=== PATIENT | female | born 1945 | race Caucasian/White ===

== ENCOUNTER → 2018-04-26 | Day surgery (SDC) | payer BC ==
[~2018-04-26] MED LIST: ADULT LOW DOSE81 MG PO; ATORVASTATIN CA40 MG PO; CELEBREX 200 M200 MG PO; COUMADIN 2 MG TA2 M1 PO; COUMADIN 5 MG TA5 M1 PO; HYDROCHLOROTHIA25 M1 PO; KLOR-CON 1010 MEQ PO; LASIX 20 MG TAB20 MG PO; NIASPAN750 MG PO; NORCO 5-325 TA1 EACH PO; OYSTER SHELL C1 EA12 PO; PRILOSEC 20 MG20 MG PO; SYNTHROID88 MCG PO; TRAMADOL 50 MG50 MG PO; VALIUM5 MG PO; VERAPAMIL HCL240 MG PO; VITAMIN B-12500 MCG PO; VITAMIN D22000 UNIT PO; ZANTAC 150MG T150 MG PO; ZEGERID 40 MG1 EACH PO; ZOCOR40 MG PO
[2018-04-26 09:29] LABS: HEMATOCRIT 41.8 % (37.0-47.0); HEMOGLOBIN 13.9 gm/dL (12.0-15.0); MCH 31.2 pg (26.0-34.0); MCHC 33.3 g/dL (28.0-37.0); MCV 93.9 fL (80.0-100.0); MPV 7.2 fl. (7.2-11.1); RBC 4.46 mil/uL (4.20-5.00); RDW-CV 14.8 % (10.5-14.5); WBC 7.4 thou/uL (4.0-11.0)
[2018-04-26 09:38] LABS: CREATININE 1.2 mg/dL (0.6-1.3); POTASSIUM 3.9 mmol/L (3.5-5.1)
[2018-04-26 09:46] LABS: PROTIME 10.6 Seconds (9.20-11.50)
--- NOTE | 2018-04-26 11:49 | EKG ---
[place] [address] ELECTROCARDIOGRAM REPORT Name: TEETEE FONTANEZ Room: [facility]#: [id number] Admission: 04/26/18 Attend Phys: Elvis Khalil MD Discharge: Date of : 49 Report #: [id number] THIS REPORT FOR: //name// [facility] Test Date: 2018-04-26 Test Time: 10:09:33 Pat Name: TEETEE FONTANEZ Department: Room: Gender: F Information Engineer: : 1945 Requested By: Elvis Khalil Order Number: [id number] Reading MD: Soren Johns Measurements Intervals [place] Rate: 68 P: 70 [place]: 169 QRS: 9 QRSD: 94 T: 30 QT: 400 QTc: 426 Interpretive Statements Sinus rhythm No previous ECG available for comparison Electronically Signed On 04-26-2018 11:49:00 DEAN by Soren Johns [email or web address] <ELECTRONICALLY SIGNED> By: Soren Johns MD, [facility] 04/26/18 1149 1009 1009 Soren Johns MD, FACC /EPI
--- NOTE | 2018-04-28 11:11 | PATH ---
[address] [address] PATHOLOGY RPT PROCEDURE Name: TEETEE THOMPSON Room: [facility] Heidi#: [id number] Admission: 04/26/18 Date of : 49 Discharge: Report #: [id number] Path Case #: [id number] [facility] Accession Number: [id number] . 01 Material submitted: . PART A: G JUNCTION BIOPSY FOR ESOPHAGITIS PART B: CECAL POLYPS PART C: SIGMOID COLON POLYP . 01 Clinical history: . Personal history of colon polyps and heartburn . 02 Diagnosis: A. G junction biopsy: - Benign gastric/columnar mucosa with moderate chronic inflammation and hyperplastic features suggesting reflux, negative for goblet cells and dysplasia. . B. Cecal polyps (x2): - Multiple fragments of tubular adenomas, negative for high grade dysplasia. . C. Sigmoid colon polyp: - Tubular adenoma, negative for high grade dysplasia. . (DIANA:gabriella;04/27/2018) AGA/04/27/2018 . 02 Electronically signed: . Wei Aldana MD, Pathologist NPI- [id number] . 01 Gross description: . A. Received in formalin labeled "Teetee Thompson, G junction biopsy for esophagitis," are 2 segments of dodd soft tissue measuring 0.9 x 0.2 x 0.2 cm in aggregate dimensions and ranging from 0.4 to 0.5 cm in maximum dimension. The specimen is submitted entirely in cassette A1. . B. Received in formalin labeled "Teetee Thompson, cecal polyps x2," are 4 segments of dodd soft tissue measuring 1.4 x 0.8 x 0.3 cm in aggregate dimensions and ranging from 0.3 to 0.5 cm in maximum dimension. The specimen is submitted entirely in cassette B1. . C. Received in formalin labeled "Teetee Thompson, sigmoid colon polyp," is a single segment of dodd soft tissue measuring 0.2 cm in maximum dimension. The specimen is entirely submitted in cassette C1. (TSD; 04/26/2018) TOB/[place] [address] PATHOLOGY RPT PROCEDURE Name: TEETEE THOMPSON Kelsy Room: [facility]#: [id number] Admission: 04/26/18 Date of : 49 Discharge: Report #: [id number] Path Case #: [id number] . 02 Pathologist provided ICD-10: K29.50, D12.0, D12.5 . 02 CPT . 651273, 156854, 067840 Specimen Comment: A courtesy copy of this report has been sent to Specimen Comment: [phone], . Specimen Comment: Report sent to / DR MOON Specimen Comment: A duplicate report has been generated due to demographic updates. Performed at: 01 [facility] [address], [place], [place] [id number] MD Rusty Luis MD Phone: [phone] Performed at: 02 [facility] [place] [address] [address], [place], [place] [id number] MD Wei Aldana MD Phone: [phone]
== END | disposition home or self-care (01) ==
LOC: M.SUR 09:10 → M.LAB 09:10 → M.SUR 09:17 → EDSTATUS 10:10 → M.SUR 11:58 → EDSTATUS 13:30 → M.SUR 14:37
PROVIDERS: Internal Medicine Gastroenterology
DX: Z12.11 Encounter for screening for malignant neoplasm of colon (principal); Z86.010 Personal history of colon polyps; D12.0 Benign neoplasm of cecum; D12.5 Benign neoplasm of sigmoid colon; K57.30 Diverticulosis of large intestine without perforation or abscess without bleeding; K29.50 Unspecified chronic gastritis without bleeding; K21.0 Gastro-esophageal reflux disease with esophagitis; K22.8 Other specified diseases of esophagus; I10 Essential (primary) hypertension; E78.5 Hyperlipidemia, unspecified; J44.9 Chronic obstructive pulmonary disease, unspecified; E07.9 Disorder of thyroid, unspecified; E03.9 Hypothyroidism, unspecified; K21.9 Gastro-esophageal reflux disease without esophagitis; E66.09 Other obesity due to excess calories; Z79.01 Long term (current) use of anticoagulants; Z98.890 Other specified postprocedural states; Z79.899 Other long term (current) drug therapy; Z86.718 Personal history of other venous thrombosis and embolism; Z88.6 Allergy status to analgesic agent